=== PATIENT | female | born 1975 | race Caucasian/White ===

== ENCOUNTER 2016-05-05 15:24 | Emergency (ER) | payer MEDICAID ==
[2016-05-05 16:09] VITALS: BP 147/74
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
== END 2016-05-05 16:50 | disposition left against medical advice (07) ==
LOC: ER 15:24
DX: S00.12XA Contusion of left eyelid and periocular area, initial encounter (principal); S00.83XA Contusion of other part of head, initial encounter; M79.645 Pain in left finger(s); Y04.2XXA Assault by strike against or bumped into by another person, initial encounter; Y92.009 Unspecified place in unspecified non-institutional (private) residence as the place of occurrence of the external cause; F41.9 Anxiety disorder, unspecified; F90.9 Attention-deficit hyperactivity disorder, unspecified type; F32.9 Major depressive disorder, single episode, unspecified; Z79.899 Other long term (current) drug therapy; Z53.20 Procedure and treatment not carried out because of patient's decision for unspecified reasons
CPT/HCPCS: 99281

== ENCOUNTER 2016-08-05 10:36 | Emergency (ER) | payer MEDICAID ==
[2016-08-05 10:40] VITALS: BP 157/89
== END 2016-08-05 12:14 | disposition left against medical advice (07) ==
LOC: ER 10:36
DX: Z53.21 Procedure and treatment not carried out due to patient leaving prior to being seen by health care provider (principal)

== ENCOUNTER 2017-12-22 08:32 | Emergency (ER) | payer SELFPAY ==
--- NOTE | 2017-12-22 09:14 | ER Document Report ---
HPI - HPI Patient complains to provider of: sick Onset: Other - 2 days Pain Level: 4 Context: 42-year-old female complaining of toothache and then sores on the outside of her mouth thinking her tooth abscess was coming to the outside of her chin. This morning she developed a really bad sore throat with general body aches. No vomiting or diarrhea. No rash. Associated Symptoms: Other - See above Exacerbated by: Other - Swallowing Relieved by: Denies Similar symptoms previously: No Recently seen / treated by doctor: No - ROS ROS below otherwise negative: Yes Systems Reviewed and Negative: Yes All other systems reviewed and negative - REPRODUCTIVE Reproductive: DENIES: : Past Medical History - General Information source: Patient - Social History Smoking Status: Current Every Day Smoker Lives with: Family Family History: Reviewed & Not Pertinent Renal/ Medical History: Denies: Hx Peritoneal Dialysis Psychiatric Medical History: Reports: Hx Anxiety, Hx Attention Deficit Hyperactivity Disorder, Hx Depression Past Surgical History: Reports: Hx Cholecystectomy, Hx Gynecologic Surgery - D&C - Immunizations Immunizations up to date: Yes Hx Diphtheria, Pertussis, Tetanus Vaccination: Yes Vertical Provider Document - CONSTITUTIONAL Agree With Documented VS: Yes Exam Limitations: No Limitations - INFECTION CONTROL TRAVEL OUTSIDE OF THE [place] IN LAST 30 DAYS: No - HEENT HEENT: Pharyngeal Erythema. negative: Conjuctival Injection, Tympanic Membrane Bulging Notes: Bilateral exudative tonsils, uvula midline, no abscess, gingivitis and some dental decay throughout her mouth there is no abscess palpated, left chin with impetigo - NECK Neck: Supple, Lymphadenopathy-Left - Anterior, Lymphadenopathy-Right - Anterior - RESPIRATORY Respiratory: Breath Sounds Normal, No Respiratory Distress - CARDIOVASCULAR Cardiovascular: Regular Rate, Regular Rhythm - GI/ABDOMEN Gastrointestinal: Abdomen Soft, Abdomen Non-Tender, No Organomegaly - MUSCULOSKELETAL/EXTREMETIES Musculoskeletal/Extremeties: MAEW - NEURO Level of Consciousness: Awake - DERM Integumentary: Rash - see above Course - Re-evaluation Re-evalutation: 12/22/17 10:23 Eating Fritos and drinking feels a lot better IV fluid is infusing. - Vital Signs Vital signs: Temp Pulse Resp BP Pulse Ox 98.4 F 114 H 20 143/93 H 98 12/22/17 08:48 12/22/17 08:48 12/22/17 08:48 12/22/17 08:48 12/22/17 08:48 Discharge - Discharge Clinical Impression: Impetigo, Exudative tonsillitis, Dental decay Condition: Good Disposition: HOME, SELF-CARE Instructions: Acetaminophen, Bactroban Ointment ([facility]), Clindamycin ([facility]), Corticosteroid Medication ([facility]), Ibuprofen (General) ([facility]), Tonsillitis ([facility]), Toothache ([facility]) Additional Instructions: Bactroban small amount 3 times a day to the left chin lesions Antibiotics until they are completed Return to the emergency room if symptoms worsen such as fever, chills, trouble swallowing, swelling to the throat, trouble breathing If you are still sick in 1 week get a mononucleosis test Prescriptions: Ibuprofen [Motrin 600 mg Tablet] 600 mg PO Q8HP PRN #30 tablet PRN Reason: Clindamycin HCl [Cleocin 150 mg Capsule] 300 mg PO TID #60 capsule Forms: Return to Work
[2017-12-22] MEDS ORDERED: KETOROLAC TROMETHAMINE INJ/PF 30 MG/1 ML SDV IV ONE (09:20)
[2017-12-22] MEDS ORDERED: DEXAMETHASONE SOD PHOS INJ 10 MG/1 ML VIAL IV ONE (09:20)
[2017-12-22] MEDS ORDERED: CLINDAMYCIN 600 MG/D5W RTU 600 MG/50 ML RTUPB IV ONE (09:20)
[2017-12-22] MEDS ORDERED: RINGERS SOLUTION,LACTATED 1,000 ML IV ONE (09:21)
[2017-12-22] MEDS ORDERED: MUPIROCIN 2% OINTMENT 22 GM TP ONE (09:21)
[2017-12-22 11:02] VITALS: BP 166/81
== END 2017-12-22 11:03 | disposition home or self-care (01) ==
LOC: ER 08:32
DX: K02.9 Dental caries, unspecified (principal); J03.90 Acute tonsillitis, unspecified; L01.00 Impetigo, unspecified; F17.200 Nicotine dependence, unspecified, uncomplicated
CPT/HCPCS: 99282; 96375; 96365; J1885; J3490; J1100

== ENCOUNTER 2018-07-29 15:32 | Emergency (ER) | payer SELFPAY ==
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
[2018-07-29 17:41] VITALS: BP 164/101
== END 2018-07-29 20:52 | disposition home or self-care (01) ==
LOC: ER 15:32
DX: K04.7 Periapical abscess without sinus (principal); K05.10 Chronic gingivitis, plaque induced; K08.89 Other specified disorders of teeth and supporting structures; R11.0 Nausea; Z88.5 Allergy status to narcotic agent
CPT/HCPCS: 99282

== ENCOUNTER 2018-12-16 14:37 | Inpatient (IN) | payer SELFPAY ==
--- NOTE | 2018-12-16 14:55 | ER Document Report ---
ED Medical Screen (RME) - General Stated Complaint: HEADACHE Time Seen by Provider: 12/16/18 14:48 Mode of Arrival: Ambulatory Information source: Patient Notes: This 43-year-old female presents to the emergency department with complaints of bloody cough that started approximately 5 hours ago. Patient is very anxious. Reports nausea denies vomiting. Reports she feels very warm. Patient has history of mental health issues. Denies asthma cardiac disease. Patient is extremely anxious. Blood noted on her arms she reports that switch she coughed up. VS completed, low o2sat, pt has hx of pneumonia. I have greeted and performed a rapid initial assessment of this patient. A comprehensive ED assessment and evaluation of the patient, analysis of test results and completion of the medical decision making process will be conducted by additional ED providers. Dictation of this chart was performed using voice recognition software; therefore, there may be some unintended grammatical errors. TRAVEL OUTSIDE OF THE [place] IN LAST 30 DAYS: No - Related Data Allergies/Adverse Reactions: codeine [Codeine] Allergy (Verified 07/29/18 15:33) Past Medical History Renal/ Medical History: Denies: Hx Peritoneal Dialysis Psychiatric Medical History: Reports: Hx Anxiety, Hx Attention Deficit Hyperactivity Disorder, Hx Depression Past Surgical History: Reports: Hx Cholecystectomy, Hx Gynecologic Surgery - D&C - Immunizations Immunizations up to date: Yes Hx Diphtheria, Pertussis, Tetanus Vaccination: Yes Course - Laboratory Result Diagrams: 12/16/18 15:27 12/16/18 15:27
[2018-12-16] MEDS ORDERED: ACETAMINOPHEN 325 MG TABLET ONE (15:22)
[2018-12-16] MEDS ORDERED: ACETAMINOPHEN 325 MG TABLET PO ONE (15:23)
[2018-12-16 15:44] LABS: VENOUS BLOOD HCO3 25.2 mmol/L (20-32); VENOUS BLOOD PCO2 47.3 mmHg (35-63); VENOUS BLOOD PH 7.35 (7.30-7.42)
[2018-12-16 15:45] LABS: ABSOLUTE BASOPHILS # (AUTO) 0.1 10^3/uL (0.0-0.2); ABSOLUTE EOSINOPHILS # (AUTO) 0.1 10^3/uL (0.0-0.6); ABSOLUTE LYMPHOCYTES (AUTO) 0.9 10^3/uL (0.5-4.7); ABSOLUTE MONOCYTES (AUTO) 0.4 10^3/uL (0.1-1.4); ABSOLUTE NEUT (AUTO) 12.9 10^3/uL (1.7-8.2); BASOPHILS % (AUTO) 0.5 % (0-2); EOSINOPHILS % (AUTO) 0.4 % (0-6); HEMATOCRIT 33.4 % (36.0-47.0); HEMOGLOBIN 11.1 g/dL (12.0-15.5); LYMPHOCYTES % (AUTO) 6.1 % (13-45); MEAN CORPUSCULAR HEMOGLOBIN 27.1 pg (27.0-33.4); MEAN CORPUSCULAR HGB CONC 33.1 g/dL (32.0-36.0); MEAN CORPUSCULAR VOLUME 82 fl (80-97); PLATELET COUNT 232 10^3/uL (150-450); RED BLOOD COUNT 4.08 10^6/uL (3.72-5.28); RED CELL DISTRIBUTION WIDTH 14.4 % (11.5-14.0); TOTAL CELLS COUNTED % (AUTO) 100 %; WHITE BLOOD COUNT 14.4 10^3/uL (4.0-10.5)
[2018-12-16] MEDS ORDERED: CEFTRIAXONE 2 GM/D5W RTU 2 GM/50 ML RTUPB IV ONE (15:55)
[2018-12-16] MEDS ORDERED: AZITHROMYCIN INJ 500 MG VIAL IV ONE (15:55)
[2018-12-16 16:03] LABS: ALBUMIN 3.1 g/dL (3.5-5.0); ALKALINE PHOSPHATASE 63 U/L (38-126); ANION GAP 7 (5-19); ASPARTATE AMINO TRANSFERASE 21 U/L (14-36); BILIRUBIN,DIRECT 0.2 mg/dL (0.0-0.4); BILIRUBIN,TOTAL 0.6 mg/dL (0.2-1.3); BLOOD UREA NITROGEN 15 mg/dL (7-20); CALCIUM 8.7 mg/dL (8.4-10.2); CARBON DIOXIDE 25 mmol/L (22-30); CHLORIDE 105 mmol/L (98-107); GLUCOSE 166 mg/dL (75-110); POTASSIUM 4.1 mmol/L (3.6-5.0); TOTAL PROTEIN 6.3 g/dL (6.3-8.2)
[2018-12-16] MEDS ORDERED: LORAZEPAM INJ 2 MG/1 ML VIAL ONE (16:12)
[2018-12-16] MEDS ORDERED: LORAZEPAM INJ 2 MG/1 ML VIAL IV ONE (16:12)
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
--- NOTE | 2018-12-16 17:05 | RADIOLOGY REPORT (SQ) ---
EXAM DESCRIPTION: CHEST SINGLE VIEW COMPLETED DATE/TIME: 12/16/2018 4:30 pm REASON FOR STUDY: shortness of breath COMPARISON: None. TECHNIQUE: Single frontal radiographic view of the chest acquired. NUMBER OF VIEWS: One view. LIMITATIONS: None. FINDINGS: LUNGS AND PLEURA: No pneumothorax. Patchy airspace -ground-glass opacities are present th roughout the left lung. No significant pleural effusion. MEDIASTINUM AND HILAR STRUCTURES: Normal. HEART AND VASCULAR STRUCTURES: Normal. BONES: No acute findings. HARDWARE: None in the chest. OTHER: No other significant finding. IMPRESSION: Patchy airspace -ground-glass opacities are present throughout the left lung. No signi ficant pleural effusion. TECHNICAL DOCUMENTATION: JOB ID: [id number] [id number] 2010 [employer]- All Rights Reserved Reading location - IP/workstation name: [email or web address]
--- NOTE | 2018-12-16 18:47 | RADIOLOGY REPORT (SQ) ---
EXAM DESCRIPTION: CTA CHEST COMPLETED DATE/TIME: 12/16/2018 6:35 pm REASON FOR STUDY: Hemoptysish COMPARISON: Earlier radiograph TECHNIQUE: CT scan of the chest performed using helical scanning technique with dynamic intravenous contrast injection. Images reviewed with lung, soft tissue and bone windows. Reconstructed coronal and sagittal MPR images reviewed. Additional 3 dimensional post-processing performed to develop Maximal Intensity Projection images (LA P). All images stored on PACS. All CT scanners at this facility use dose modulation, iterative reconstruction, and/or weight based d osing when appropriate to reduce radiation dose to as low as reasonably achievable (ALARA). [facility]: Dose Right [facility]: CareDose [facility]: Dose Right [facility]: Teradose 4D [facility]: iDoneThis CONTRAST TYPE AND DOSE: contrast/concentration: Isovue 350.00 mg/ml; Total Contrast Delivered: 70.0 ml; Total Saline Delivered: 77.0 ml Contrast bolus not optimized for the pulmonary arteries. RENAL FUNCTION: None required. The patient is less than 50 years old. RADIATION DOSE: CT Rad equipment meets quality standard of care and radiation dose reduction techniq ues were employed. CTDIvol: 19.8 - 32.9 mGy. DLP: 1223 mGy-cm. . LIMITATIONS: Breathing motion artifact. FINDINGS: LUNGS AND PLEURA: No pneumothorax. Diffuse patchy consolidation and ground-glass opacity throughout the left lung, small areas are also noted in the right lung. Trace left pleural effusion . AORTA AND GREAT VESSELS: No aneurysm. Contrast bolus not optimized for the aorta. HEART: No pericardial effusion. No significant coronary artery calcifications. PULMONARY ARTERIES: No emboli visualized in the main pulmonary arteries or the segmental branches. HILAR AND MEDIASTINAL STRUCTURES: No identified masses or abnormal nodes. HARDWARE: None in the chest. UPPER ABDOMEN: No significant findings. Limited exam. THYROID AND OTHER SOFT TISSUES: No masses. No adenopathy. BONES: No acute or significant finding. 3D MIPS: Confirm above findings. OTHER: No other significant finding. IMPRESSION: Diffuse patchy consolidation and ground-glass opacity throughout the left lung, small ar eas are also noted in the right lung. Trace left pleural effusion. No emboli visualized in the main pulmonary arteries or the segmental branches. COMMENT: Quality ID # [id number]: Final reports with documentation of one or more dose reduction techniques (e.g., Automated exposure control, adjustment of the mA and/or kV according to patient size, use of iterative reconstruction technique) TECHNICAL DOCUMENTATION: JOB ID: [id number] [place]-[id number] 2010 [employer]- All Rights Reserved Reading location - IP/workstation name: [employer]
[2018-12-16] MEDS ORDERED: GUAIFENESIN SYRP 200 MG/10 ML UDC PO PRN (19:51)
[2018-12-16] MEDS ORDERED: TUBERCULIN,PURIF.PROT.DERIV. 5 TU/0.1 ML TEST 1 ML VIAL ID ONE ×2 (19:51→22:07)
[2018-12-16] MEDS ORDERED: LEVALBUTEROL HCL NEB 0.63 MG/3 ML AMPUL NEB PRN (19:51)
[2018-12-16] MEDS ORDERED: METOPROLOL TARTRATE PF/INJ 5 MG/5 ML SDV IV PRN (20:05)
[2018-12-16] MEDS ORDERED: MAG HYDROX/AL HYDROX/SIMETH SUSP 30 ML UDCUP PO PRN (20:05)
[2018-12-16] MEDS ORDERED: MAGNESIUM HYDROXIDE SUSP 30 ML UDCUP PO PRN (20:05)
[2018-12-16] MEDS ORDERED: NALBUPHINE HCL INJ 10 MG/1 ML AMPULE IV PRN ×3 (20:05→20:48)
[2018-12-16] MEDS ORDERED: DEXTROSE 40% GEL 15 GM TUBE PO PRN ×2 (20:06)
[2018-12-16] MEDS ORDERED: GLUCAGON,HUMAN RECOMB 1 MG INJ IM PRN (20:06)
[2018-12-16] MEDS ORDERED: DEXTROSE 50%-WATER 25 GM/50 ML DISP.SYRIN IV PRN ×2 (20:06)
[2018-12-16] MEDS ORDERED: CHLORPROMAZINE HCL INJ 25 MG/1 ML AMPULE IV PRN (20:07)
[2018-12-16 20:48] LABS: FREE T3 4.02 pg/mL (2.77-5.27); FREE T4 (FREE THYROXINE) 1.25 ng/dL (0.78-2.19)
[2018-12-16] MEDS: DIAZEPAM 5 MG TABLET PO PRN (21:40)
[2018-12-16] MEDS: FAMOTIDINE 20 MG TABLET PO SCH (21:40)
[2018-12-16] MEDS: ACETAMINOPHEN 325 MG TABLET PO PRN (21:41)
--- NOTE | 2018-12-16 22:11 | EKG REPORT ---
SEVERITY:- OTHERWISE NORMAL ECG - SINUS TACHYCARDIA : Confirmed by: Gurdeep Stone MD 16-Dec-2018 22:10:48
[2018-12-16] MEDS: HYDRALAZINE HCL INJ/PF 20 MG/1 ML SDV IV PRN (22:38)
[2018-12-16] MEDS: RINGERS SOLUTION,LACTATED 1,000 ML IV PRN (22:39)
[2018-12-16 23:08] LABS: ARTERIAL BLOOD BASE EXCESS -2.6 mmol/L; ARTERIAL BLOOD FIO2 60%; ARTERIAL BLOOD H2CO3 1.23 mmol/L (1.05-1.35); ARTERIAL BLOOD HCO3 22.6 mmol/L (20-24); ARTERIAL BLOOD O2 SATURATION 91.2 % (94-98); ARTERIAL BLOOD PCO2 40.8 mmHg (35-45); ARTERIAL BLOOD PH 7.36 (7.35-7.45); ARTERIAL BLOOD PO2 62.4 mmHg (80-100); ARTERIAL BLOOD TOTAL CO2 23.9 mmol/L (21-25)
[2018-12-17] MEDS: IPRATROPIUM BROMIDE 0.02% NEB 0.5 MG/2.5 ML AMPUL NEB SCH ×6 (00:06→23:41)
[2018-12-17] MEDS: LEVALBUTEROL HCL NEB 1.25 MG/3 ML AMPUL NEB SCH ×2 (00:06→08:08)
[2018-12-17] MEDS ORDERED: CHLORPROMAZINE HCL INJ 25 MG/1 ML AMPULE ONE (00:20)
[2018-12-17] MEDS: RINGERS SOLUTION,LACTATED 1,000 ML IV PRN (05:35)
--- NOTE | 2018-12-17 05:57 | PDOC H&P ---
History of Present Illness Admission Date/PCP: 12/16/2018 19:05 No local PCP Patient complains of: Hemoptysis History of Present Illness: NEETU GIRARD is a 43 year old female who presented to the emergency room with acute hemoptysis. Patient admits the abrupt onset of a cough with moderate hemoptysis on the morning of admission. Her hemoptysis was accompanied by mild dyspnea at rest worsened by exertion, a persistent productive cough (clear to whitish sputum mixed with blood) and a subjective fever. She denies other associated or accompanying signs and symptoms. She admits a prior similar episode 5 years ago with pneumonia. She has not identified any aggravating or ameliorating factors for her hemoptysis. In the emergency room she was found to be mildly hypoxic and a chest x-ray revealed a left-sided pneumonia confirmed by a CTA of the chest which demonstrated an infiltrate in the left lung without evidence of pulmonary emboli. Patient was subsequently treated with routine community-acquired pneumonia antibiotic therapy and BiPAP was used to correct her hypoxia. She was subsequently admitted to the hospital for further evaluation and treatment. Past Medical History Cardiac Medical History: Denies: Coronary Artery Disease, DVT, Hypertension, Pulmonary Embolism Pulmonary Medical History: Reports: Pneumonia - 5 years ago, Other - Hemoptysis with pneumonia Denies: Asthma, Chronic Obstructive Pulmonary Disease (COPD) EENT Medical History: Denies: Cataracts, Ears - Hearing aids Neurological Medical History: Denies: Hemorrhagic CVA, Ischemic CVA, Seizures Endocrine Medical History: Reports: Gestational Diabetes, Obesity Denies: Diabetes Mellitus Type 1, Diabetes Mellitus Type 2, Hyperthyroidism, Hypothyroidism Renal/ Medical History: Denies: Chronic Kidney Disease, Nephrolithiasis Malignancy Medical History: Reports: None GI Medical History: Denies: Cirrhosis, Crohn's Disease, Gastroesophageal Reflux Disease, Hepatitis, Peptic Ulcer Disease, Ulcerative Colitis Musculoskeltal Medical History: Denies: Arthritis, Gout Skin Medical History: Denies: Eczema, Psoriasis Psychiatric Medical History: Reports: Attention Deficit Hyperactivity Disorder, Depression Denies: Alcohol Dependency, Substance Abuse, Tobacco Dependency Traumatic Medical History: Reports: None Hematology: Denies: Anemia, Bleeding Tendencies Infectious Medical History: Reports: None Past Surgical History Past Surgical History: Reports: Cholecystectomy Social History Information Source: Patient Lives with: Friend Smoking Status: Former Smoker Frequency of Alcohol Use: None Hx Recreational Drug Use: No Drugs: None Hx Prescription Drug Abuse: No - Advance Directive Resuscitation Status: Full Code Surrogate healthcare decision maker:: Ifeoma Sellers Family History Family History: DM. denies: CAD, Hypertension, Malignancy Parental Family History Reviewed: Yes Children Family History Reviewed: No Sibling(s) Family History Reviewed.: Yes Medication/Allergy Home Medications: Alprazolam [Xanax 1 mg Tablet] 0.05 mg PO TID PRN 04/11/11 Albuterol Sulfate [Albuterol Sulfate Hfa] 1 - 2 puff IH Q4 PRN #1 hfa.aer.ad 12/31/13 Labetalol HCl [Normodyne 200 mg Tablet] 300 mg PO Q12 #60 tablet 12/31/13 Levofloxacin [Levaquin 750 mg Tablet] 750 mg PO DAILY #10 tab 12/31/13 Alprazolam [Xanax] 1 mg PO TID 04/01/14 Dextroamphetamine/Amphetamine [Adderall 10 mg Tablet] mg PO 04/01/14 Hydrocodone/Acetaminophen [Vicodin 5-300 mg Tablet] 1 - 2 tab PO ASDIR PRN #15 tab 04/01/14 Ibuprofen 800 mg PO Q8HP PRN #30 tablet 04/01/14 Penicillin V Potassium [Penicillin Vk 500 mg Tablet] 500 mg PO QID #28 tablet 04/01/14 Hydrocodone/Acetaminophen [[place] 5-325 mg Tablet] 1 tab PO Q6 #10 tablet 07/02/14 Ibuprofen [Motrin 800 mg Tablet] 800 mg PO Q8H PRN #30 tab 07/02/14 Amoxicillin 875 mg PO BID #20 tablet 02/04/15 Hydrocodone/Acetaminophen [[place] 5-325 Tablet] 1 each PO Q6 #15 tablet 02/04/15 Pseudoephedrine HCl [Sudafed 12-Hour] 120 mg PO BID #0 tablet.sa 02/04/15 Clindamycin HCl 300 mg PO QID #20 capsule 05/31/15 Oxycodone HCl/Acetaminophen [Percocet 5-325 mg Tablet] 1 - 2 tab PO Q4H PRN #15 tablet 05/31/15 Naproxen Sodium [Naprelan] 500 mg PO BID PRN #60 tablet.sa 09/20/15 Clindamycin HCl 300 mg PO Q6H #28 capsule 01/08/16 Hydrocodone/Acetaminophen [[place] 5-325 mg Tablet] 1 tab PO Q6H PRN #5 tablet 01/08/16 Phenol/Sodium Phenolate [Chloraseptic Sore Throat [place] 177 ml] 2 sprays MM Q4HP PRN #1 bottle 01/08/16 Prednisone [Deltasone 10 mg Tablet] 10 mg PO ASDIR PRN #21 tablet 01/08/16 Clindamycin HCl [Cleocin 150 mg Capsule] 300 mg PO TID #60 capsule 12/22/17 Ibuprofen [Motrin 600 mg Tablet] 600 mg PO Q8HP PRN #30 tablet 12/22/17 Amoxicillin 1 tab PO TID #21 tab 07/29/18 Tramadol HCl/Acetaminophen [Ultracet 37.5 mg/325 mg Tablet] 1 each PO Q6HP PRN #12 tablet 07/29/18 Allergies/Adverse Reactions: codeine [Codeine] Allergy (Verified 07/29/18 15:33) Review of Systems Constitutional: PRESENT: as per HPI, fever(s) - Subjective. ABSENT: chills, headache(s) Eyes: ABSENT: visual disturbances, other - Eye pain Ears: ABSENT: hearing changes, other - Ear pain Nose, Mouth, and Throat: ABSENT: mouth pain, sore throat Cardiovascular: PRESENT: as per HPI, dyspnea on exertion. ABSENT: chest pain, edema, orthropnea, palpitations Respiratory: PRESENT: as per HPI, cough, dyspnea, hemoptysis, sputum Gastrointestinal: ABSENT: abdominal pain, constipation, diarrhea, nausea, vomiting Genitourinary: ABSENT: dysuria, hematuria Musculoskeletal: ABSENT: back pain, joint swelling, muscle weakness Integumentary: ABSENT: pruritus, rash Neurological: ABSENT: confusion, convulsions, focal weakness, memory loss, syncope Psychiatric: ABSENT: anxiety, depression Endocrine: ABSENT: cold intolerance, heat intolerance Hematologic/Lymphatic: ABSENT: easy bleeding, easy bruising Allergic/Immunologic: ABSENT: seasonal rhinorrhea Physical Exam Vital Signs: Temp Pulse Resp BP Pulse Ox 97.8 F 22 H 166/77 H 96 12/16/18 17:07 12/16/18 17:40 12/16/18 15:31 12/16/18 17:40 General appearance: PRESENT: no acute distress, cooperative, morbidly obese, other - On BiPAP Head exam: PRESENT: atraumatic, normocephalic Eye exam: PRESENT: conjunctiva pink. ABSENT: conjunctival injection, scleral icterus Ear exam: PRESENT: normal external ear exam. ABSENT: bleeding, drainage Mouth exam: PRESENT: dry mucosa, neck supple Neck exam: ABSENT: JVD, thyromegaly, tracheal deviation Respiratory exam: PRESENT: rales - Coarse rales noted in the left lower lung tolbert, symmetrical, other - On BiPAP Cardiovascular exam: PRESENT: RRR, tachycardia. ABSENT: clicks, gallop, rubs Pulses: PRESENT: normal radial pulses, normal dorsalis pedis pul Vascular exam: PRESENT: normal capillary refill. ABSENT: pallor GI/Abdominal exam: PRESENT: normal bowel sounds, soft Rectal exam: PRESENT: deferred Extremities exam: ABSENT: joint swelling, pedal edema Musculoskeletal exam: PRESENT: full ROM, normal inspection Neurological exam: PRESENT: alert, oriented to person, oriented to place, o riented to time, oriented to situation, CN II-XII grossly intact. ABSENT: motor sensory deficit Psychiatric exam: PRESENT: appropriate affect, normal mood Skin exam: PRESENT: dry, intact, warm. ABSENT: jaundice, rash, urticaria Results Laboratory Results: 12/16/18 15:27 12/16/18 15:27 12/16/18 12/16/18 12/16/18 15:27 15:27 15:27 WBC 14.4 H RBC 4.08 Hgb 11.1 L Hct 33.4 L MCV 82 MCH 27.1 MCHC 33.1 RDW 14.4 H Plt Count 232 Seg Neutrophils % 90.0 H VBG pH VBG pCO2 VBG HCO3 VBG Base Excess Sodium 136.9 L Potassium 4.1 Chloride 105 Carbon Dioxide 25 Anion Gap 7 BUN 15 Creatinine 0.82 Est GFR ( Amer) > 60 Glucose 166 H Lactic Acid 1.4 Calcium 8.7 Total Bilirubin 0.6 AST 21 Alkaline Phosphatase 63 Total Protein 6.3 Albumin 3.1 L 12/16/18 15:27 WBC RBC Hgb Hct MCV MCH MCHC RDW Plt Count Seg Neutrophils % VBG pH 7.35 VBG pCO2 47.3 VBG HCO3 25.2 VBG Base Excess -1.0 Sodium Potassium Chloride Carbon Dioxide Anion Gap BUN Creatinine Est GFR ( Amer) Glucose Lactic Acid Calcium Total Bilirubin AST Alkaline Phosphatase Total Protein Albumin 12/16/18 15:27 Troponin I < 0.012 Impressions: Chest X-Ray 12/16/18 15:30 IMPRESSION: Patchy airspace -ground-glass opacities are present throughout the left lung. No significant pleural effusion. Chest/Abdomen CTA 12/16/18 17:01 IMPRESSION: Diffuse patchy consolidation and ground-glass opacity throughout the left lung, small areas are also noted in the right lung. Trace left pleural effusion. No emboli visualized in the main pulmonary arteries or the segmental branches. Assessment and Plan - Diagnosis (1) PNA (pneumonia) Qualifiers: Aspiration pneumonia type: unspecified Laterality: left Lung location: unspecified part of lung Is this a current diagnosis for this admission?: Yes Plan: Patient's community-acquired pneumonia will be treated with Rocephin 1 g IV every 24 hours and azithromycin 500 mg IV every 24 hours. Daily CBCs and metabolic profiles will be obtained. O2 sats will be monitored closely and supplemental oxygen will be provided to maintain an O2 sat greater than 93%. Patient will receive IV fluids and routine supportive cares. Nubain 5 to 10 mg IV every 3 hours on a as needed basis will be available for any moderate to severe pain associated with her pneumonia. Patient will also receive an aggressive pulmonary toilet utilizing nebulized Xopenex, Atrovent and Mucomyst. (2) Acute respiratory failure with hypoxia Is this a current diagnosis for this admission?: Yes Plan: Patient will be treated with supplemental oxygen via nasal cannula or noninvasive airway pressure support devices such as CPAP or BiPAP in order to maintain an O2 sat greater than 93%. Patient's O2 sat be monitored closely throughout her hospital stay. (3) Hemoptysis Is this a current diagnosis for this admission?: Yes Plan: Patient's hemoptysis will be evaluated with daily CBCs and ongoing clinical assessment. Pulmonary consultation will be obtained if hemoptysis is persistent. (4) Hyperglycemia Is this a current diagnosis for this admission?: Yes Plan: Hemoglobin A1c will be obtained. Patient will be treated with a diabetic diet initially and will have before meals and at bedtime Accu-Cheks performed with sliding scale insulin for hyperglycemia and a hypoglycemic protocol in place. (5) Anxiety Is this a current diagnosis for this admission?: Yes Plan: Patient's anxiety will be treated with Valium 5 mg p.o. every 4 hours as needed anxiety or agitation. (6) Morbid obesity Is this a current diagnosis for this admission?: Yes Plan: Patient's morbid obesity will be addressed with a diabetic diet with an accompanying cardiac diet and the electronic drafter consultation will be obtained. (7) Elevated blood pressure reading without diagnosis of hypertension Is this a current diagnosis for this admission?: Yes Plan: Patient's blood pressure will be followed closely throughout her hospital stay. Hydralazine 20 mg IV every 4 hours and or metoprolol 5 mg IV every 4 hours will be used to control blood pressures (systolic blood pressure greater than 160 and/or diastolic blood pressure greater than 100. - Time Time Spent with patient: 25-34 minutes Medications reviewed and adjusted accordingly: Yes Anticipated discharge: Home - Inpatient Certification Based on my medical assessment, after consideration of the patient's comorbidities, presenting symptoms, or acuity I expect that the services needed warrant INPATIENT care.: Yes I certify that my determination is in accordance with my understanding of Medicare's requirements for reasonable and necessary INPATIENT services [42 CFR 412.3e].: Yes Medical Necessity: Significant Comorbidiites Make Outpatient Treatment Too Risky, Need Close Monitoring Due to Risk of Patient Decompensation, Need For IV Fluids, Need For Continuous Telemetry Monitoring, Need for Nebulizer Therapy and Monitoring of Response, Need for IV Antibiotics, Risk of Complication if Not Cared For in Hospital
[2018-12-17 06:35] LABS: HEMATOCRIT 33.4 % (36.0-47.0); HEMOGLOBIN 11.1 g/dL (12.0-15.5); MEAN CORPUSCULAR HEMOGLOBIN 27.2 pg (27.0-33.4); MEAN CORPUSCULAR HGB CONC 33.3 g/dL (32.0-36.0); MEAN CORPUSCULAR VOLUME 82 fl (80-97); PLATELET COUNT 217 10^3/uL (150-450); RED BLOOD COUNT 4.09 10^6/uL (3.72-5.28); RED CELL DISTRIBUTION WIDTH 14.5 % (11.5-14.0); WHITE BLOOD COUNT 20.7 10^3/uL (4.0-10.5)
[2018-12-17 06:43] LABS: ANION GAP 8 (5-19); BLOOD UREA NITROGEN 11 mg/dL (7-20); CALCIUM 8.2 mg/dL (8.4-10.2); CARBON DIOXIDE 25 mmol/L (22-30); CHLORIDE 104 mmol/L (98-107); CHOLESTEROL 198.61 mg/dL (0-200); GLUCOSE 133 mg/dL (75-110); POTASSIUM 3.6 mmol/L (3.6-5.0); TRIGLYCERIDES 52 mg/dL (<150)
[2018-12-17 06:54] LABS: DIRECT LDL 147 mg/dL (<100)
[2018-12-17] MEDS: ACETYLCYSTEINE 20% SOLN 800 MG/4 ML VIAL.NEB NEB SCH ×2 (08:09→20:01)
[2018-12-17] MEDS: DOCUSATE SODIUM 100 MG CAPSULE PO SCH ×2 (10:22→17:37)
[2018-12-17 10:28] LABS: ARTERIAL BLOOD BASE EXCESS 1.9 mmol/L; ARTERIAL BLOOD FIO2 8L; ARTERIAL BLOOD H2CO3 1.01 mmol/L (1.05-1.35); ARTERIAL BLOOD HCO3 24.9 mmol/L (20-24); ARTERIAL BLOOD O2 SATURATION 91.9 % (94-98); ARTERIAL BLOOD PCO2 33.7 mmHg (35-45); ARTERIAL BLOOD PH 7.49 (7.35-7.45); ARTERIAL BLOOD PO2 56.9 mmHg (80-100)
[2018-12-17] MEDS: FAMOTIDINE 20 MG TABLET PO SCH ×2 (10:29→21:55)
[2018-12-17] MEDS: DIAZEPAM 5 MG TABLET PO PRN ×2 (10:29→19:59)
[2018-12-17] MEDS ORDERED: RINGERS SOLUTION,LACTATED 1,000 ML IV PRN (11:06)
--- NOTE | 2018-12-17 11:15 | PDOC PROGRESS REPORT ---
Subjective Progress Note for:: 12/17/18 Subjective:: 12/16: NEETU GIRARD is a 43 year old female who presented to the emergency room with acute hemoptysis. Patient admits the abrupt onset of a cough with moderate hemoptysis on the morning of admission. Her hemoptysis was accompanied by mild dyspnea at rest worsened by exertion, a persistent productive cough (clear to whitish sputum mixed with blood) and a subjective fever. She denies other associated or accompanying signs and symptoms. She admits a prior similar episode 5 years ago with pneumonia. She has not identified any aggravating or ameliorating factors for her hemoptysis. In the emergency room she was found to be mildly hypoxic and a chest x-ray revealed a left-sided pneumonia confirmed by a CTA of the chest which demonstrated an infiltrate in the left lung without evidence of pulmonary emboli. Patient was subsequently treated with routine c ommunity-acquired pneumonia antibiotic therapy and BiPAP was used to correct her hypoxia. She was subsequently admitted to the hospital for further evaluation and treatment. 12/17: Patient was seen and examined. She is on BiPAP. She is still tachypneic. She could speak in full sentences however. She is still distress. CT scan of the chest reviewed. Her ABG reviewed. Labs also reviewed. Reason For Visit: HEMOPTYSIS,PNEUMONIA Physical Exam Vital Signs: Temp Pulse Resp BP Pulse Ox 100.5 F H 101 H 36 H 139/76 H 94 12/17/18 04:00 12/17/18 08:09 12/17/18 08:09 12/17/18 04:00 12/17/18 09:20 Intake & Output 12/16/18 12/17/18 12/18/18 06:59 06:59 06:59 Intake Total 1100 Output Total 0 Balance 1100 Weight 288 lb 2.307 oz Exam: Patient is mild to moderate acute distress Alert oriented to time place person No anxiety or depression Head: atraumatic normocephalic Pupils: are equal reactive Neck: is supple and trachea is central no lymphadenopathy No pharyngeal erythema or exudates Heart: Regular tachycardia Lungs: Bilateral rhonchi, tachypnea Abdomen: nontender nondistended Neurological exam: unremarkable Musculoskeletal: No joint swelling or effusion chronic lower back pain and tenderness No suicidal or homicidal ideation Results Laboratory Results: 12/17/18 05:40 12/17/18 05:40 12/16/18 12/16/18 12/16/18 15:27 15:27 15:27 WBC 14.4 H RBC 4.08 Hgb 11.1 L Hct 33.4 L MCV 82 MCH 27.1 MCHC 33.1 RDW 14.4 H Plt Count 232 Seg Neutrophils % 90.0 H Carbonic Acid HCO3/H2CO3 Ratio ABG pH ABG pCO2 ABG pO2 ABG HCO3 ABG O2 Saturation ABG Base Excess VBG pH VBG pCO2 VBG HCO3 VBG Base Excess FiO2 Sodium 136.9 L Potassium 4.1 Chloride 105 Carbon Dioxide 25 Anion Gap 7 BUN 15 Creatinine 0.82 Est GFR ( Amer) > 60 Glucose 166 H Lactic Acid 1.4 Calcium 8.7 Total Bilirubin 0.6 AST 21 Alkaline Phosphatase 63 Total Protein 6.3 Albumin 3.1 L Triglycerides Cholesterol LDL Cholesterol Direct VLDL Cholesterol HDL Cholesterol TSH Free T4 Free T3 pg/mL Blood Type Antibody Screen 12/16/18 12/16/18 12/16/18 15:27 15:27 20:20 WBC RBC Hgb Hct MCV MCH MCHC RDW Plt Count Seg Neutrophils % Carbonic Acid HCO3/H2CO3 Ratio ABG pH ABG pCO2 ABG pO2 ABG HCO3 ABG O2 Saturation ABG Base Excess VBG pH 7.35 VBG pCO2 47.3 VBG HCO3 25.2 VBG Base Excess -1.0 FiO2 Sodium Potassium Chloride Carbon Dioxide Anion Gap BUN Creatinine Est GFR ( Amer) Glucose Lactic Acid Calcium Total Bilirubin AST Alkaline Phosphatase Total Protein Albumin Triglycerides Cholesterol LDL Cholesterol Direct VLDL Cholesterol HDL Cholesterol TSH Free T4 1.25 Free T3 pg/mL 4.02 Blood Type O POSITIVE Antibody Screen NEGATIVE 12/16/18 12/16/18 12/17/18 21:10 22:05 00:44 WBC RBC Hgb Hct MCV MCH MCHC RDW Plt Count Seg Neutrophils % Carbonic Acid 1.23 HCO3/H2CO3 Ratio 18:1 ABG pH 7.36 ABG pCO2 40.8 ABG pO2 62.4 L ABG HCO3 22.6 ABG O2 Saturation 91.2 L ABG Base Excess -2.6 VBG pH VBG pCO2 VBG HCO3 VBG Base Excess FiO2 60% Sodium Potassium Chloride Carbon Dioxide Anion Gap BUN Creatinine Est GFR ( Amer) Glucose Lactic Acid 1.1 1.3 Calcium Total Bilirubin AST Alkaline Phosphatase Total Protein Albumin Triglycerides Cholesterol LDL Cholesterol Direct VLDL Cholesterol HDL Cholesterol TSH Free T4 Free T3 pg/mL Blood Type Antibody Screen 12/17/18 12/17/18 12/17/18 05:40 05:40 05:40 WBC 20.7 H RBC 4.09 Hgb 11.1 L Hct 33.4 L MCV 82 MCH 27.2 MCHC 33.3 RDW 14.5 H Plt Count 217 Seg Neutrophils % Carbonic Acid HCO3/H2CO3 Ratio ABG pH ABG pCO2 ABG pO2 ABG HCO3 ABG O2 Saturation ABG Base Excess VBG pH VBG pCO2 VBG HCO3 VBG Base Excess FiO2 Sodium 137.0 Potassium 3.6 Chloride 104 Carbon Dioxide 25 Anion Gap 8 BUN 11 Creatinine 0.64 Est GFR ( Amer) > 60 Glucose 133 H Lactic Acid 1.0 Calcium 8.2 L Total Bilirubin AST Alkaline Phosphatase Total Protein Albumin Triglycerides 52 Cholesterol 198.61 LDL Cholesterol Direct 147 H VLDL Cholesterol 10.0 HDL Cholesterol 46 TSH Free T4 Free T3 pg/mL Blood Type Antibody Screen 12/17/18 12/17/18 05:40 10:20 WBC RBC Hgb Hct MCV MCH MCHC RDW Plt Count Seg Neutrophils % Carbonic Acid 1.01 L HCO3/H2CO3 Ratio 24:1 ABG pH 7.49 H ABG pCO2 33.7 L ABG pO2 56.9 L ABG HCO3 24.9 H ABG O2 Saturation 91.9 L ABG Base Excess 1.9 VBG pH VBG pCO2 VBG HCO3 VBG Base Excess FiO2 8L Sodium Potassium Chloride Carbon Dioxide Anion Gap BUN Creatinine Est GFR ( Amer) Glucose Lactic Acid Calcium Total Bilirubin AST Alkaline Phosphatase Total Protein Albumin Triglycerides Cholesterol LDL Cholesterol Direct VLDL Cholesterol HDL Cholesterol TSH 0.52 Free T4 Free T3 pg/mL Blood Type Antibody Screen 12/16/18 15:27 Troponin I < 0.012 Impressions: Chest X-Ray 12/16/18 15:30 IMPRESSION: Patchy airspace -ground-glass opacities are present throughout the left lung. No significant pleural effusion. Chest/Abdomen CTA 12/16/18 17:01 IMPRESSION: Diffuse patchy consolidation and ground-glass opacity throughout the left lung, small areas are also noted in the right lung. Trace left pleural effusion. No emboli visualized in the main pulmonary arteries or the segmental branches. Assessment and Plan - Plan Summary Plan Summary: (1) PNA (pneumonia) Severe bilateral pneumonia. Will start IV vancomycin, IV Levaquin, IV cefepime. Monitor blood culture and sputum culture. Repeat chest x-ray in the morning. Aggressive pulmonary toilet. Treat hypoxia as below. (2) Acute respiratory failure with hypoxia Patient will need high flow nasal cannula oxygen. Discussed with respiratory therapy. (3) Hemoptysis Most likely due to pneumonia. Monitor hemoglobin hematocrit. Currently she is improving. (4) Hyperglycemia Hemoglobin A1c is 6.3. Continue with a diabetic diet initially and will have before meals and at bedtime Accu-Cheks performed with sliding scale insulin for hyperglycemia and a hypoglycemic protocol in place. (5) Anxiety She was started on admission on Valium 5 mg p.o. every 4 hours as needed anxiety or agitation. (6) Morbid obesity On admission, home care associate evaluation requested. (7) Elevated blood pressure reading without diagnosis of hypertension Patient's blood pressure will be followed closely throughout her hospital stay. Continue hydralazine 20 mg IV every 4 hours and or metoprolol 5 mg IV every 4 hours will be used to control blood pressures (systolic blood pressure greater than 160 and/or diastolic blood pressure greater than 100.
[2018-12-17] MEDS ORDERED: AZITHROMYCIN 500 MG in DEXTROSE 5%-WATER 250 ML IV SCH (12:00)
[2018-12-17] MEDS ORDERED: CEFTRIAXONE 1 GM/D5W RTU 1 GM/50 ML RTUPB IV SCH (12:00)
[2018-12-17] MEDS: LEVOFLOXACIN 750 MG/D5W RTU 750 MG/150 ML RTUPB IV SCH (12:15)
[2018-12-17] MEDS: CEFEPIME 2 GM/D5W RTU 2 GM/50 ML RTUPB IV SCH (14:06)
[2018-12-17] MEDS: IBUPROFEN 800 MG TABLET PO PRN ×2 (15:36→22:07)
[2018-12-17] MEDS: METHYLPREDNISOLONE INJ 40 MG/1 ML SDV IV SCH ×2 (15:37→21:55)
[2018-12-17] MEDS: VANCOMYCIN HCL 1,250 MG in DEXTROSE 5%-WATER 250 ML IV SCH ×2 (15:37→21:55)
[2018-12-17] MEDS: HYDRALAZINE HCL INJ/PF 20 MG/1 ML SDV IV PRN (19:53)
[2018-12-17] MEDS ORDERED: VANCOMYCIN HCL INJ 1000 MG VIAL IV SCH (22:00)
[2018-12-17] MEDS: ALBUTEROL SULFATE 0.083% NEB 2.5 MG/3 ML AMPUL NEB PRN (23:40)
[2018-12-18] MEDS: CEFEPIME 2 GM/D5W RTU 2 GM/50 ML RTUPB IV SCH ×3 (00:05→21:51)
[2018-12-18] MEDS: DIAZEPAM 5 MG TABLET PO PRN ×3 (01:02→12:52)
[2018-12-18] MEDS: VANCOMYCIN HCL 1,250 MG in DEXTROSE 5%-WATER 250 ML IV SCH ×4 (03:50→20:14)
[2018-12-18] MEDS: IPRATROPIUM BROMIDE 0.02% NEB 0.5 MG/2.5 ML AMPUL NEB SCH ×5 (04:28→20:35)
[2018-12-18 05:25] LABS: HEMATOCRIT 32.1 % (36.0-47.0); HEMOGLOBIN 10.8 g/dL (12.0-15.5); MEAN CORPUSCULAR HEMOGLOBIN 27.4 pg (27.0-33.4); MEAN CORPUSCULAR HGB CONC 33.6 g/dL (32.0-36.0); MEAN CORPUSCULAR VOLUME 82 fl (80-97); PLATELET COUNT 215 10^3/uL (150-450); RED BLOOD COUNT 3.94 10^6/uL (3.72-5.28); RED CELL DISTRIBUTION WIDTH 14.3 % (11.5-14.0); WHITE BLOOD COUNT 16.2 10^3/uL (4.0-10.5)
[2018-12-18 05:39] LABS: ANION GAP 10 (5-19); BLOOD UREA NITROGEN 12 mg/dL (7-20); CALCIUM 8.6 mg/dL (8.4-10.2); CARBON DIOXIDE 21 mmol/L (22-30); CHLORIDE 109 mmol/L (98-107); GLUCOSE 184 mg/dL (75-110); POTASSIUM 3.6 mmol/L (3.6-5.0)
[2018-12-18] MEDS: METHYLPREDNISOLONE INJ 40 MG/1 ML SDV IV SCH ×3 (05:48→21:52)
[2018-12-18] MEDS ORDERED: CLONAZEPAM 1 MG TABLET PO PRN (07:55)
[2018-12-18] MEDS ORDERED: DEXTROAMPHETAMINE PO SCH (08:00)
[2018-12-18] MEDS ORDERED: AMPHETAMINE PO SCH (08:00)
[2018-12-18] MEDS ORDERED: [UNRECOGNIZED DRUG - OTHER] PO SCH (08:00)
[2018-12-18 09:02] LABS: APPEARANCE,URINE CLEAR; BILIRUBIN,URINE NEGATIVE (NEGATIVE); COLOR,URINE YELLOW; GLUCOSE, URINE 50 mg/dL (NEGATIVE); KETONES,URINE NEGATIVE (NEGATIVE); LEUKOCYTE ESTERASE,URINE NEGATIVE (NEGATIVE); NITRITE,URINE NEGATIVE (NEGATIVE); PROTEIN,URINE NEGATIVE (NEGATIVE); UROBILINOGEN,URINE NEGATIVE mg/dL (<2.0)
[2018-12-18] MEDS: ACETYLCYSTEINE 20% SOLN 800 MG/4 ML VIAL.NEB NEB SCH ×2 (09:04→20:35)
[2018-12-18] MEDS: ALBUTEROL SULFATE 0.083% NEB 2.5 MG/3 ML AMPUL NEB PRN (09:05)
--- NOTE | 2018-12-18 09:07 | RADIOLOGY REPORT (SQ) ---
EXAM DESCRIPTION: CHEST 2 VIEWS COMPLETED DATE/TIME: 12/18/2018 8:56 am REASON FOR STUDY: pneumonia COMPARISON: 12/16/2018 EXAM PARAMETERS: NUMBER OF VIEWS: two views TECHNIQUE: Digital Frontal and Lateral radiographic views of the chest acquired. RADIATION DOSE: NA LIMITATIONS: none FINDINGS: LUNGS AND PLEURA: Significant interval worsening of heterogeneous airspace disease, more c onspicuous in the left lung. MEDIASTINUM AND HILAR STRUCTURES: No masses or contour abnormalities. HEART AND VASCULAR STRUCTURES: Heart normal size. No evidence for failure. BONES: No acute findings. HARDWARE: None in the chest. OTHER: No other significant finding. IMPRESSION: Significant interval worsening of heterogeneous bilateral airspace disease, more conspic uous in the left lung. Findings are concerning for worsened multifocal infection. TECHNICAL DOCUMENTATION: JOB ID: [id number] [employer]?- All Rights Reserved Reading location - IP/workstation name: [email or web address]
[2018-12-18 09:54] LABS: ARTERIAL BLOOD BASE EXCESS -1.4 mmol/L; ARTERIAL BLOOD H2CO3 0.91 mmol/L (1.05-1.35); ARTERIAL BLOOD HCO3 21.5 mmol/L (20-24); ARTERIAL BLOOD O2 SATURATION 94.9 % (94-98); ARTERIAL BLOOD PCO2 30.2 mmHg (35-45); ARTERIAL BLOOD PH 7.47 (7.35-7.45); ARTERIAL BLOOD PO2 68.4 mmHg (80-100); ARTERIAL BLOOD TOTAL CO2 22.4 mmol/L (21-25)
[2018-12-18] MEDS: DOCUSATE SODIUM 100 MG CAPSULE PO SCH ×2 (10:10→18:31)
[2018-12-18] MEDS: FAMOTIDINE 20 MG TABLET PO SCH ×2 (10:13→21:52)
[2018-12-18] MEDS: IBUPROFEN 800 MG TABLET PO PRN (10:13)
--- NOTE | 2018-12-18 12:03 | PDOC PROGRESS REPORT ---
Subjective Progress Note for:: 12/18/18 Subjective:: 12/16: NEETU GIRARD is a 43 year old female who presented to the emergency room with acute hemoptysis. Patient admits the abrupt onset of a cough with moderate hemoptysis on the morning of admission. Her hemoptysis was accompanied by mild dyspnea at rest worsened by exertion, a persistent productive cough (clear to whitish sputum mixed with blood) and a subjective fever. She denies other associated or accompanying signs and symptoms. She admits a prior similar episode 5 years ago with pneumonia. She has not identified any aggravating or ameliorating factors for her hemoptysis. In the emergency room she was found to be mildly hypoxic and a chest x-ray revealed a left-sided pneumonia confirmed by a CTA of the chest which demonstrated an infiltrate in the left lung without evidence of pulmonary emboli. Patient was subsequently treated with routine c ommunity-acquired pneumonia antibiotic therapy and BiPAP was used to correct her hypoxia. She was subsequently admitted to the hospital for further evaluation and treatment. 12/17: Patient was seen and examined. She is on BiPAP. She is still tachypneic. She could speak in full sentences however. She is still distress. CT scan of the chest reviewed. Her ABG reviewed. Labs also reviewed. 12/18: She was seen and examined today. She is currently on high flow nasal cannula 49% FiO2. She still tachypneic and in distress. ABG today reviewed. Chest x-ray looks a lot worse. She still having hemoptysis. Reason For Visit: HEMOPTYSIS,PNEUMONIA Physical Exam Vital Signs: Temp Pulse Resp BP Pulse Ox 99.2 F 93 20 149/78 H 93 12/18/18 03:32 12/18/18 09:05 12/18/18 09:05 12/18/18 03:32 12/18/18 09:05 Intake & Output 12/17/18 12/18/18 12/19/18 06:59 06:59 06:59 Intake Total 1100 4253 Output Total 0 2000 Balance 1100 2253 Weight 288 lb 2.307 oz 283 lb 4.704 oz Exam: Patient is mild to moderate acute distress Alert oriented to time place person No anxiety or depression Head: atraumatic normocephalic Pupils: are equal reactive Neck: is supple and trachea is central no lymphadenopathy No pharyngeal erythema or exudates Heart: Regular tachycardia Lungs: Bilateral rhonchi, tachypnea Abdomen: nontender nondistended Neurological exam: unremarkable Musculoskeletal: No joint swelling or effusion chronic lower back pain and tenderness No suicidal or homicidal ideation Results Laboratory Results: 12/18/18 04:19 12/18/18 04:19 12/18/18 12/18/18 12/18/18 04:19 04:19 08:42 WBC 16.2 H RBC 3.94 Hgb 10.8 L Hct 32.1 L MCV 82 MCH 27.4 MCHC 33.6 RDW 14.3 H Plt Count 215 Carbonic Acid HCO3/H2CO3 Ratio ABG pH ABG pCO2 ABG pO2 ABG HCO3 ABG O2 Saturation ABG Base Excess FiO2 Sodium 140.4 Potassium 3.6 Chloride 109 H Carbon Dioxide 21 L Anion Gap 10 BUN 12 Creatinine 0.61 Est GFR ( Amer) > 60 Glucose 184 H Calcium 8.6 Urine Color YELLOW Urine Appearance CLEAR Urine pH 6.0 Ur Specific [place] 1.010 Urine Protein NEGATIVE Urine Glucose (UA) 50 H Urine Ketones NEGATIVE Urine Blood MODERATE H Urine Nitrite NEGATIVE Ur Leukocyte Esterase NEGATIVE Urine WBC (Auto) 1 Urine RBC (Auto) 0 12/18/18 09:48 WBC RBC Hgb Hct MCV MCH MCHC RDW Plt Count Carbonic Acid 0.91 L HCO3/H2CO3 Ratio 23:1 ABG pH 7.47 H ABG pCO2 30.2 L ABG pO2 68.4 L ABG HCO3 21.5 ABG O2 Saturation 94.9 ABG Base Excess -1.4 FiO2 48% Sodium Potassium Chloride Carbon Dioxide Anion Gap BUN Creatinine Est GFR ( Amer) Glucose Calcium Urine Color Urine Appearance Urine pH Ur Specific [place] Urine Protein Urine Glucose (UA) Urine Ketones Urine Blood Urine Nitrite Ur Leukocyte Esterase Urine WBC (Auto) Urine RBC (Auto) 12/16/18 15:27 Troponin I < 0.012 Impressions: Chest/Abdomen CTA 12/16/18 17:01 IMPRESSION: Diffuse patchy consolidation and ground-glass opacity throughout t he left lung, small areas are also noted in the right lung. Trace left pleural effusion. No emboli visualized in the main pulmonary arteries or the segmental branches. Chest X-Ray 12/18/18 07:58 IMPRESSION: Significant interval worsening of heterogeneous bilateral airspace disease, more conspicuous in the left lung. Findings are concerning for worsened multifocal infection. Assessment and Plan - Diagnosis (1) Acute respiratory failure with hypoxia Is this a current diagnosis for this admission?: Yes (2) PNA (pneumonia) Qualifiers: Aspiration pneumonia type: unspecified Laterality: left Lung location: unspecified part of lung Is this a current diagnosis for this admission?: Yes (3) Elevated blood pressure reading without diagnosis of hypertension Is this a current diagnosis for this admission?: Yes (4) Hyperglycemia Is this a current diagnosis for this admission?: Yes (5) Morbid obesity Is this a current diagnosis for this admission?: Yes (6) Hemoptysis Is this a current diagnosis for this admission?: Yes (7) Anxiety Is this a current diagnosis for this admission?: Yes - Plan Summary Plan Summary: (1) PNA (pneumonia) Severe bilateral pneumonia. Continue IV vancomycin, IV Levaquin, IV cefepime. Monitor blood culture and sputum culture. Continue aggressive pulmonary toilet. Continue oxygen as needed and wean down as tolerated. (2) Acute respiratory failure with hypoxia Continue high flow nasal cannula oxygen. Will consult time study observer for possible transfer to the ICU. Awaiting a callback from Dr. Billy. (3) Hemoptysis Most likely due to pneumonia. Monitor hemoglobin hematocrit. Registered Diet Technician hemoptysis. (4) Hyperglycemia Hemoglobin A1c is 6.3. Continue with a diabetic diet initially and will have before meals and at bedtime Accu-Cheks performed with sliding scale insulin for hyperglycemia and a hypoglycemic protocol in place. (5) Anxiety She was started on admission on Valium 5 mg p.o. every 4 hours as needed anxiety or agitation. (6) Morbid obesity On admission, tire repairer evaluation requested. (7) Elevated blood pressure reading without diagnosis of hypertension Patient's blood pressure will be followed closely throughout her hospital stay. Continue hydralazine 20 mg IV every 4 hours and or metoprolol 5 mg IV every 4 hours will be used to control blood pressures (systolic blood pressure greater than 160 and/or diastolic blood pressure greater than 100.
[2018-12-18] MEDS: LEVOFLOXACIN 750 MG/D5W RTU 750 MG/150 ML RTUPB IV SCH (12:52)
[2018-12-18] MEDS: ACETAMINOPHEN 325 MG TABLET PO PRN ×2 (12:52→22:14)
[2018-12-18] MEDS ORDERED: FUROSEMIDE INJ/PF 40 MG/4 ML SDV ONE (15:48)
[2018-12-18 15:51] LABS: ANION GAP 11 (5-19); BLOOD UREA NITROGEN 14 mg/dL (7-20); CALCIUM 8.6 mg/dL (8.4-10.2); CARBON DIOXIDE 21 mmol/L (22-30); CHLORIDE 109 mmol/L (98-107); GLUCOSE 198 mg/dL (75-110); POTASSIUM 3.6 mmol/L (3.6-5.0)
[2018-12-18 15:53] LABS: VANCOMYCIN,TROUGH 17.7 ug/mL (5.0-20.0)
--- NOTE | 2018-12-18 16:10 | CRITICAL CARE ADMISSION REPORT ---
HPI Date:: 12/18/18 Reason for ICU Reason:: acute hypoxic respiratory failure. ARDS. HCAP HPI: Pt is a 43 yo woman who was admitted to the hospital on 12/16 for PNA. She has been treated with IV ATBX and IV steroids. Her respiratory status has worsened and she has experienced worsening hypoxia. Pt has been transferred to the ICU. Upon arrival to the ICU she is on a 10 liter NRB mask. She admits to having an about one week ago. She denies any vaginal bleeding, vaginal discharge, or abdominal pain. She states she smokes cigarettes occasionally and does not vape. She states she tried vaping one time about 6 months ago but has not done it since. She denies any sick contacts. She states the last time she had PNA was after the of her youngest son. - Diagnosis/Plan (1) Acute respiratory failure with hypoxia Is this a current diagnosis for this admission?: Yes (2) Respiratory distress, acute Is this a current diagnosis for this admission?: Yes (3) PNA (pneumonia) Qualifiers: Aspiration pneumonia type: unspecified Laterality: bilateral Lung location: unspecified part of lung Is this a current diagnosis for this admission?: Yes (4) HTN (hypertension) Is this a current diagnosis for this admission?: Yes (5) Sepsis Qualifiers: Sepsis type: sepsis due to unspecified organism Sepsis acute organ dysfunction status: with acute organ dysfunction Severe sepsis acute organ dysfunction type: acute respiratory failure Acute respiratory failure type: with hypoxia Severe sepsis shock status: without septic shock Qualified Code(s): A41.9 - Sepsis, unspecified organism; R65.20 - Severe sepsis without septic shock; J96.01 - Acute respiratory failure with hypoxia Is this a current diagnosis for this admission?: Yes (6) Hyperglycemia Is this a current diagnosis for this admission?: Yes (7) Morbid obesity Is this a current diagnosis for this admission?: Yes Past Medical History Cardiac Medical History: Denies: Coronary Artery Disease, DVT, Hypertension, Pulmonary Embolism Pulmonary Medical History: Reports: Pneumonia - 5 years ago, Other - Hemoptysis with pneumonia Denies: Asthma, Chronic Obstructive Pulmonary Disease (COPD) EENT Medical History: Denies: Cataracts, Ears - Hearing aids Neurological Medical History: Denies: Hemorrhagic CVA, Ischemic CVA, Seizures Endocrine Medical History: Reports: Gestational Diabetes, Obesity Denies: Diabetes Mellitus Type 1, Diabetes Mellitus Type 2, Hyperthyroidism, Hypothyroidism Renal/ Medical History: Denies: Chronic Kidney Disease, Nephrolithiasis Malignancy Medical History: Reports: None GI Medical History: Denies: Cirrhosis, Crohn's Disease, Gastroesophageal Reflux Disease, Hepatitis, Peptic Ulcer Disease, Ulcerative Colitis Musculoskeltal Medical History: Denies: Arthritis, Gout Skin Medical History: Denies: Eczema, Psoriasis Psychiatric Medical History: Reports: Attention Deficit Hyperactivity Disorder, Depression Denies: Alcohol Dependency, Substance Abuse, Tobacco Dependency Traumatic Medical History: Reports: None Hematology: Denies: Anemia, Bleeding Tendencies Infectious Medical History: Reports: None Past Surgical History Past Surgical History: Reports: Cholecystectomy Social/Family History - Social History Lives with: Friend Smoking Status: Former Smoker Frequency of Alcohol Use: None Hx Recreational Drug Use: No Drugs: None Hx Prescription Drug Abuse: No - Medication/Allergies Home Medications: Clonazepam [Klonopin 1 mg Tablet] 1 mg PO Q8HP PRN 12/17/18 Dextroamphetamine/Amphetamine [Dextroamp-Amphetamin 30 mg Tab] 90 mg PO ACBRKFST 12/17/18 Allergies/Adverse Reactions: codeine [Codeine] Allergy (Verified 07/29/18 15:33) Review of Systems Review of Systems: per HPI Physical Exam Vital Signs: Temp Pulse Resp BP Pulse Ox 99.2 F 97 22 H 149/78 H 93 12/18/18 03:32 12/18/18 14:00 12/18/18 12:48 12/18/18 03:32 12/18/18 13:07 Intake & Output 12/17/18 12/18/18 12/19/18 06:59 06:59 06:59 Intake Total 1100 4253 300 Output Total 0 2000 Balance 1100 2253 300 Weight 130.7 kg 128.5 kg Weight/Height Weight 128.5 kg Height 5 ft 4 in General appearance: PRESENT: no acute distress, well-developed, well-nourished, other - obese Respiratory exam: PRESENT: decreased breath sounds, tachypnea Cardiovascular exam: PRESENT: RRR GI/Abdominal exam: PRESENT: soft, other - non-tender, non-distended Extremities exam: PRESENT: other - no edema Neurological exam: PRESENT: alert, awake Laboratory/Radiographs Laboratory Results: 12/18/18 04:19 12/18/18 14:54 12/18/18 12/18/1819 04:19 04:19 08:42 WBC 16.2 H RBC 3.94 Hgb 10.8 L Hct 32.1 L MCV 82 MCH 27.4 MCHC 33.6 RDW 14.3 H Plt Count 215 Carbonic Acid HCO3/H2CO3 Ratio ABG pH ABG pCO2 ABG pO2 ABG HCO3 ABG O2 Saturation ABG Base Excess FiO2 Sodium 140.4 Potassium 3.6 Chloride 109 H Carbon Dioxide 21 L Anion Gap 10 BUN 12 Creatinine 0.61 Est GFR ( Amer) > 60 Glucose 184 H Calcium 8.6 Urine Color YELLOW Urine Appearance CLEAR Urine pH 6.0 Ur Specific [place] 1.010 Urine Protein NEGATIVE Urine Glucose (UA) 50 H Urine Ketones NEGATIVE Urine Blood MODERATE H Urine Nitrite NEGATIVE Ur Leukocyte Esterase NEGATIVE Urine WBC (Auto) 1 Urine RBC (Auto) 0 12/18/18 12/18/18 09:48 14:54 WBC RBC Hgb Hct MCV MCH MCHC RDW Plt Count Carbonic Acid 0.91 L HCO3/H2CO3 Ratio 23:1 ABG pH 7.47 H ABG pCO2 30.2 L ABG pO2 68.4 L ABG HCO3 21.5 ABG O2 Saturation 94.9 ABG Base Excess -1.4 FiO2 48% Sodium 140.6 Potassium 3.6 Chloride 109 H Carbon Dioxide 21 L Anion Gap 11 BUN 14 Creatinine 0.70 Est GFR ( Amer) > 60 Glucose 198 H Calcium 8.6 Urine Color Urine Appearance Urine pH Ur Specific [place] Urine Protein Urine Glucose (UA) Urine Ketones Urine Blood Urine Nitrite Ur Leukocyte Esterase Urine WBC (Auto) Urine RBC (Auto) 12/16/18 15:27 Troponin I < 0.012 Impressions: Chest/Abdomen CTA 12/16/18 17:01 IMPRESSION: Diffuse patchy consolidation and ground-glass opacity throughout the left lung, small areas are also noted in the right lung. Trace left pleural effusion. No emboli visualized in the main pulmonary arteries or the segmental branches. Chest X-Ray 12/18/18 07:58 IMPRESSION: Significant interval worsening of heterogeneous bilateral airspace disease, more conspicuous in the left lung. Findings are concerning for worsened multifocal infection. Critical Time -: The care of a critically ill patient is dynamic. This note represents a static moment in the admission process. orders and treatments may be given simulataneously and urgentl, and time is not group sales representative of the treatment process. This patient requires Critical Care secondary to life threating organ or limb dysfunction. Without the need for Critical Care services, the patient is at risk for increasid mortality and morbidity. Provider Note Provider Note: Assesment: Critically ill 43 yo woman with acute hypoxic respiratory failure, severe sepsis, HCAP, ARDS, HTN, morbid obesity, hyperglycemia. Plan: 1. Respiratory: acute hypoxic respiratory failure. Continue supplemental O2 via NRB. Will start HFNC if needed. 2. Pulmonary: ARDS, HCAP. Continue vanc,cefepime, levaquin, steroids. Will d/c IVF and will give lasix 3. CV: HTN. D/C IVF. Give lasix. Check echo 4. ID: severe sepsis, HCAP. Continue vanc, cefepime, levaquin. 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 No signs or symptoms of endometritis 6. Endocrine: hyperglycemia. On steroids. Accuchecks, SSI (pt refusing insulin) 7. Nutrition: NPO 8. Prophylaxis: lovenox, scds. Critical care time= 50 min, excluding procedures
[2018-12-18] MEDS: FUROSEMIDE INJ/PF 40 MG/4 ML SDV IV SCH ×2 (16:58→21:51)
[2018-12-18 18:23] LABS: A TYPE INFLUENZA AG NEGATIVE (NEGATIVE); B INFLUENZA AG NEGATIVE (NEGATIVE)
[2018-12-18] MEDS: CLONAZEPAM 1 MG TABLET PO SCH ×2 (18:30→18:40)
[2018-12-18] MEDS: HYDRALAZINE HCL INJ/PF 20 MG/1 ML SDV IV PRN (18:32)
[2018-12-18] MEDS: CLONAZEPAM 1 MG TABLET PO PRN (19:29)
[2018-12-18] MEDS ORDERED: GLUCAGON,HUMAN RECOMB 1 MG INJ SUBCUT PRN (20:39)
[2018-12-18] MEDS ORDERED: DEXTROSE 40% GEL 15 GM TUBE PO PRN ×2 (20:39)
[2018-12-18] MEDS ORDERED: DEXTROSE 50%-WATER 25 GM/50 ML DISP.SYRIN IV PRN ×2 (20:39)
[2018-12-18] MEDS: INSULIN REG, HUMAN 100 UNIT/ML 3 ML VIAL (PYX) SUBCUT PRN (21:48)
[2018-12-18] MEDS: KETOROLAC TROMETHAMINE INJ/PF 30 MG/1 ML SDV IV PRN (23:42)
[2018-12-19] MEDS: IPRATROPIUM BROMIDE 0.02% NEB 0.5 MG/2.5 ML AMPUL NEB SCH ×5 (00:34→15:39)
[2018-12-19] MEDS: VANCOMYCIN HCL 1,250 MG in DEXTROSE 5%-WATER 250 ML IV SCH ×2 (02:22→09:16)
[2018-12-19] MEDS: HYDRALAZINE HCL INJ/PF 20 MG/1 ML SDV IV PRN (02:23)
[2018-12-19] MEDS: ACETAMINOPHEN 325 MG TABLET PO PRN (03:09)
[2018-12-19] MEDS: CLONAZEPAM 1 MG TABLET PO PRN ×2 (03:10→12:13)
[2018-12-19 03:37] LABS: HEMATOCRIT 32.6 % (36.0-47.0); HEMOGLOBIN 10.7 g/dL (12.0-15.5); MEAN CORPUSCULAR HEMOGLOBIN 26.8 pg (27.0-33.4); MEAN CORPUSCULAR HGB CONC 32.9 g/dL (32.0-36.0); MEAN CORPUSCULAR VOLUME 81 fl (80-97); PLATELET COUNT 255 10^3/uL (150-450); RED CELL DISTRIBUTION WIDTH 14.6 % (11.5-14.0); WHITE BLOOD COUNT 17.9 10^3/uL (4.0-10.5)
[2018-12-19 03:56] LABS: ANION GAP 10 (5-19); BLOOD UREA NITROGEN 19 mg/dL (7-20); CALCIUM 8.4 mg/dL (8.4-10.2); CARBON DIOXIDE 24 mmol/L (22-30); CHLORIDE 107 mmol/L (98-107); GLUCOSE 179 mg/dL (75-110); POTASSIUM 3.3 mmol/L (3.6-5.0)
[2018-12-19] MEDS: METHYLPREDNISOLONE INJ 40 MG/1 ML SDV IV SCH (05:28)
[2018-12-19] MEDS: ACETYLCYSTEINE 20% SOLN 800 MG/4 ML VIAL.NEB NEB SCH (08:51)
[2018-12-19] MEDS ORDERED: HYDRALAZINE HCL INJ/PF 20 MG/1 ML SDV IV PRN (09:00)
[2018-12-19] MEDS ORDERED: METOPROLOL TARTRATE PF/INJ 5 MG/5 ML SDV IV PRN (09:00)
[2018-12-19] MEDS: INSULIN REG, HUMAN 100 UNIT/ML 3 ML VIAL (PYX) SUBCUT PRN ×2 (09:14→12:14)
[2018-12-19] MEDS: FAMOTIDINE 20 MG TABLET PO SCH (09:15)
[2018-12-19] MEDS: CEFEPIME 2 GM/D5W RTU 2 GM/50 ML RTUPB IV SCH (09:15)
[2018-12-19] MEDS: DOCUSATE SODIUM 100 MG CAPSULE PO SCH (09:15)
[2018-12-19] MEDS ORDERED: ENOXAPARIN SODIUM INJ 40 MG/0.4 ML DISP.SYRIN SUBCUT SCH (10:00)
--- NOTE | 2018-12-19 11:15 | PDOC PROGRESS REPORT ---
Subjective Progress Note for:: 12/19/18 Subjective:: Feeling a bit better, wants to eat, breathing improved Reason For Visit: HEMOPTYSIS,PNEUMONIA Physical Exam Vital Signs: Temp Pulse Resp BP Pulse Ox 99.5 F 95 24 H 161/76 H 96 12/19/18 06:00 12/19/18 10:07 12/19/18 10:27 12/19/18 07:41 12/19/18 10:27 Intake & Output 12/18/18 12/19/18 12/20/18 06:59 06:59 06:59 Intake Total 4253 1100 50 Output Total 1999 3850 225 Balance 2280 -9230 -992 Weight 128.5 kg 129.7 kg General appearance: PRESENT: no acute distress, cooperative, well-developed Head exam: PRESENT: atraumatic Eye exam: PRESENT: EOMI Ear exam: PRESENT: normal external ear exam Mouth exam: PRESENT: dry mucosa Neck exam: PRESENT: full ROM Respiratory exam: PRESENT: crackles - Mild crackles at bases, unlabored Cardiovascular exam: PRESENT: RRR Pulses: PRESENT: normal radial pulses Vascular exam: PRESENT: normal capillary refill GI/Abdominal exam: PRESENT: soft Rectal exam: PRESENT: deferred Extremities exam: PRESENT: full ROM Musculoskeletal exam: PRESENT: ambulatory, full ROM Neurological exam: PRESENT: alert, awake, oriented to person, oriented to place, oriented to time, oriented to situation Skin exam: PRESENT: dry, intact, normal color Results Laboratory Results: 12/19/18 03:29 12/19/18 03:29 12/18/18 12/19/18 12/19/18 14:54 03:29 03:29 WBC 17.9 H RBC 4.00 Hgb 10.7 L Hct 32.6 L MCV 81 MCH 26.8 L MCHC 32.9 RDW 14.6 H Plt Count 255 Sodium 140.6 140.6 Potassium 3.6 3.3 L Chloride 109 H 107 Carbon Dioxide 21 L 24 Anion Gap 11 10 BUN 14 19 Creatinine 0.70 0.79 Est GFR ( Amer) > 60 > 60 Glucose 198 H 179 H Calcium 8.6 8.4 12/16/18 15:27 Troponin I < 0.012 Impressions: Chest/Abdomen CTA 12/16/18 17:01 IMPRESSION: Diffuse patchy consolidation and ground-glass opacity throughout the left lung, small areas are also noted in the right lung. Trace left pleural effusion. No emboli visualized in the main pulmonary arteries or the segmental branches. Chest X-Ray 12/18/18 07:58 IMPRESSION: Significant interval worsening of heterogeneous bilateral airspace disease, more conspicuous in the left lung. Findings are concerning for worsened multifocal infection. Assessment & Plan - Diagnosis (1) Hemoptysis Is this a current diagnosis for this admission?: Yes Plan: The presenting symptom has resolved (2) Sepsis Qualifiers: Sepsis type: sepsis due to unspecified organism Sepsis acute organ dysfunction status: with acute organ dysfunction Severe sepsis acute organ dysfunction type: acute respiratory failure Acute respiratory failure type: with hypoxia Severe sepsis shock status: without septic shock Qualified Code(s): A41.9 - Sepsis, unspecified organism; R65.20 - Severe sepsis without septic shock; J96.01 - Acute respiratory failure with hypoxia Is this a current diagnosis for this admission?: Yes Plan: Severe sepsis is resolved. WBC is still elevated but this is likely due to steroids now decreased (3) Acute respiratory failure with hypoxia Is this a current diagnosis for this admission?: Yes Plan: She still has an oxygen need. Not in failure but this is limiting her from being discharged (4) HTN (hypertension) Qualifiers: Hypertension type: essential hypertension Qualified Code(s): I10 - Essential (primary) hypertension Is this a current diagnosis for this admission?: Yes Plan: Stable on current medications (5) Hyperglycemia Is this a current diagnosis for this admission?: Yes Plan: Shouldinprove with lowering steroids (6) PNA (pneumonia) Qualifiers: Aspiration pneumonia type: unspecified Laterality: bilateral Lung location: unspecified part of lung Is this a current diagnosis for this admission?: Yes Plan: Continue current antibiotics. She had a PaO2/FiO2 gradient close to ARDS on admission. CXR is lagging behind clinical picture. If she improves throughout the day transfer to floor in AM. - Time Time Spent with patient: 15-24 minutes Total Critical Time (Minutes): 35 Medications reviewed and adjusted accordingly: Yes Anticipated discharge: Home Within: within 72 hours - Inpatient Certification Medical Necessity: Need Close Monitoring Due to Risk of Patient Decompensation
[2018-12-19] MEDS: LEVOFLOXACIN 750 MG/D5W RTU 750 MG/150 ML RTUPB IV SCH (12:13)
[2018-12-19] MEDS: KETOROLAC TROMETHAMINE INJ/PF 30 MG/1 ML SDV IV PRN (12:28)
[2018-12-19] MEDS ORDERED: METHYLPREDNISOLONE INJ 40 MG/1 ML SDV IV SCH (14:00)
[2018-12-19 14:44] VITALS: BP 140/57
--- NOTE | 2018-12-19 16:47 | PDOC DISCHARGE SUMMARY ---
General - Admit/Disc Date/PCP Admission Date/Primary Care Provider: 12/16/18 19:27 Discharge Date: 12/19/18 - Discharge Diagnosis (1) Hemoptysis Is this a current diagnosis for this admission?: Yes Summary: Resolved (2) Sepsis Is this a current diagnosis for this admission?: Yes Summary: Resolved (3) Acute respiratory failure with hypoxia Is this a current diagnosis for this admission?: Yes Summary: Still active and in need of oxygen and antibiotics (4) HTN (hypertension) Is this a current diagnosis for this admission?: Yes (5) Hyperglycemia Is this a current diagnosis for this admission?: Yes Summary: Improved (6) PNA (pneumonia) Is this a current diagnosis for this admission?: Yes Summary: Clinically improved but not advisable for discharge - Additional Information Resuscitation Status: Full Code Discharge Diet: Other (Comments) - On regular but signed herself out Discharge Activity: Activity As Tolerated Home Medications: Clonazepam [Klonopin 1 mg Tablet] 1 mg PO Q8HP PRN 12/17/18 Dextroamphetamine/Amphetamine [Dextroamp-Amphetamin 30 mg Tab] 90 mg PO ACBRKFST 12/17/18 History of Present Illness History of Present Illness: NEETU GIRARD is a 43 year old female Hospital Course Hospital Course: Admitted for PNA connumity acquired with an ARDS pattern, ALI physiology. Worsened and needed the ICU. Was on 28% highflow and despite efforts by nursing, myself and her daughter, signed out AMA. Physical Exam Vital Signs: Temp Pulse Resp BP Pulse Ox 99.5 F 90 26 H 140/57 H 97 12/19/18 06:00 12/19/18 15:39 12/19/18 15:39 12/19/18 10:41 12/19/18 15:39 Intake & Output 12/18/18 12/19/18 12/20/18 06:59 06:59 06:59 Intake Total 4253 1250 450 Output Total 1999 3850 225 Balance 2253 -2600 225 Weight 128.5 kg 129.7 kg General appearance: PRESENT: mild distress, well-developed Eye exam: PRESENT: EOMI Ear exam: PRESENT: normal external ear exam Mouth exam: PRESENT: moist Respiratory exam: PRESENT: crackles Cardiovascular exam: PRESENT: RRR GI/Abdominal exam: PRESENT: soft Rectal exam: PRESENT: deferred Extremities exam: PRESENT: full ROM Musculoskeletal exam: PRESENT: ambulatory Neurological exam: PRESENT: alert, oriented to person, oriented to place, o riented to time, oriented to situation Psychiatric exam: PRESENT: appropriate affect Results Laboratory Results: 12/19/18 03:29 12/19/18 03:29 12/19/18 12/19/18 03:29 03:29 WBC 17.9 H RBC 4.00 Hgb 10.7 L Hct 32.6 L MCV 81 MCH 26.8 L MCHC 32.9 RDW 14.6 H Plt Count 255 Sodium 140.6 Potassium 3.3 L Chloride 107 Carbon Dioxide 24 Anion Gap 10 BUN 19 Creatinine 0.79 Est GFR ( Amer) > 60 Glucose 179 H Calcium 8.4 12/18/18 11:05 Sputum Gram Stain - Final 12/18/18 11:05 Sputum Sputum Culture - Final C.albicans/C.dubliniensis Reduced Normal Kisha 12/16/18 15:27 Troponin I < 0.012 Impressions: Chest/Abdomen CTA 12/16/18 17:01 IMPRESSION: Diffuse patchy consolidation and ground-glass opacity throughout the left lung, small areas are also noted in the right lung. Trace left pleural effusion. No emboli visualized in the main pulmonary arteries or the segmental branches. Chest X-Ray 12/18/18 07:58 IMPRESSION: Significant interval worsening of heterogeneous bilateral airspace disease, more conspicuous in the left lung. Findings are concerning for worsened multifocal infection. Qualifiers PATIENT BEING DISCHARGED WITH ANY OF THE FOLLOWING DIAGNOSIS: No VTE patient discharged on overlapping Therapy?: No Reason(s) for not prescribing Overlap Therapy:: Drug declined by patient Stroke Pt being discharged on Anti-thrombolytic therapy?: No Reason(s) for not prescribing Anti-thrombolytic therapy:: Drug declined by patient Acute Heart Failure - Is this a Heart Failure Patient?: No Follow-up Appointment scheduled within 7 days?: No, document reason - Pt insisted on signing herself out.
--- NOTE | 2018-12-20 20:59 | XCELERA REPORT ---
[address] [address] Transthoracic Echocardiogram Report Name: NEETU GIRARD Age: 43 yrs Gender: Female : 1975 Patient Status: Inpatient Patient Location: ICU^609^A Study Date: 12/19/2018 11:55 AM Height: 64 in Weight: 283 lb BSA: 2.3 m2 Procedure: A two-dimensional transthoracic echocardiogram with color flow and Doppler was performed. Study Quality: Good. Reason For Study: hypoxia History: Shortness of breath. HYPOXIA. Ordering Physician: CARLI WATKINS Performed By: Susie Brito Interpretation Summary The left ventricle is normal in size. There is normal left ventricular wall thickness. LV EF is 65% The left ventricular ejection fraction is within normal limits. Doppler measurements suggest impaired left ventricular relaxation, which is associated with grade I/IV or mild diastolic dysfunction The left ventricular wall motion is normal. There is no thrombus. No ASD ,VSD ,or PFO seen The right ventricle is mildly dilated. The right ventricular systolic function is normal. The right atrium is normal. The left atrial size is normal. There is no evidence of mitral valve prolapse. There is no vegetation seen on the mitral valve. There is no mitral valve stenosis. There is a trace to mild amount of mitral regurgitation There is no aortic valvular vegetation. There is aortic sclerosis without aortic stenosis. There is no LVOT obstruction. No aortic regurgitation is present. There is no tricuspid stenosis. There is a moderate to severe amount of tricuspid regurgitation There is servere pulmonary hypertension by echo RVSP is at least 62 mm of Hg , with RA mean of atleast 20. There is no pulmonic valvular stenosis. There is a trace amount of pulmonic regurgitation The aortic root is normal size. The inferior vena cava appeared dilated and did not change with respiration (RAP > 20 mmHg) There is no pericardial effusion. MMode/2D Measurements & Calculations RVDd: 4.2 cm LVIDd: 5.2 cm FS: 36.4 % Ao root diam: 2.7 cm IVSd: 1.1 cm LVIDs: 3.3 cm EDV(Teich): 128.1 ml Ao root area: 5.9 cm2 LVPWd: 1.1 cm ESV(Teich): 43.8 ml LA dimension: 3.9 cm EF(Teich): 65.8 % Doppler Measurements & Calculations MV E max diana: MV P1/2t max diana: Ao V2 max: LV V1 max P.2 cm/sec 145.6 cm/sec 211.7 cm/sec 11.1 mmHg MV A max diana: MV P1/2t: 60.3 msec Ao max PG: LV V1 max: 148.7 cm/sec MVA(P1/2t): 3.6 cm2 17.9 mmHg 166.6 cm/sec MV E/A: 0.98 MV dec slope: 707.0 cm/sec2 MV dec time: 0.20 sec PA V2 max: TR max diana: MV P1/2t-pr_phl: 135.7 cm/sec 324.4 cm/sec 60.3 msec PA max P.4 mmHgTR max P.1 mmHg Left Ventricle The left ventricle is normal in size. There is normal left ventricular wall thickness. LV EF is 65%. The left ventricular ejection fraction is within normal limits. Doppler measurements suggest impaired left ventricular relaxation, which is associated with grade I/IV or mild diastolic dysfunction. The left ventricular wall motion is normal. There is no thrombus. No ASD ,VSD ,or PFO seen. Right Ventricle The right ventricle is mildly dilated. The right ventricular systolic function is normal. Atria The right atrium is normal. The left atrial size is normal. Mitral Valve There is no evidence of mitral valve prolapse. There is no vegetation seen on the mitral valve. There is no mitral valve stenosis. There is a trace to mild amount of mitral regurgitation. Aortic Valve There is no aortic valvular vegetation. There is aortic sclerosis without aortic stenosis. There is no LVOT obstruction. No aortic regurgitation is present. Tricuspid Valve There is no tricuspid stenosis. There is a moderate to severe amount of tricuspid regurgitation. There is servere pulmonary hypertension by echo. RVSP is at least 62 mm of Hg , with RA mean of atleast 20. Pulmonic Valve There is no pulmonic valvular stenosis. There is a trace amount of pulmonic regurgitation. Great Vessels The aortic root is normal size. The inferior vena cava appeared dilated and did not change with respiration (RAP > 20 mmHg). Effusions There is no pericardial effusion. : CARLI WATKINS Lakshmi
--- NOTE | 2018-12-25 15:44 | Physician Advisory Note ---
Physician Advisor ProgressNote .: Pursuant to the plan for [facility], I have reviewed the medical record for this patient. 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 dx severe sepsis. Spoke w/Dr. Billy, the ICU attg who initially gave the dx, today for further details. She believes pt had HCAP, which was likely due to "MRSA, GNs, or anaerobes - that's what HCAP is". Not certain which of the 3 bacteria was most likely in this case; only saw pt 1 day, when pt at her worst. Pt developed ARDS due to infxn in this case. "ARDS is typically caused by PNA with sepsis." Dr. Billy states sepsis "is defined as 'documented source of infxn + organ failure', & pt had that (sepsis) present on admission, as she came in with leukocytosis and PNA & was needing Bipap in the ED with high flow O2." - She noted she is not bothered that pt's initial lactate levels were <2.0, as "I treat the pt, not the lab value, and this pt was extremely ill ...." Therefore, it appears dx.s included "severe sepsis, POA, due to PNA, with associated Ac Hypoxemic Resp Failure that progressed to ARDS" in this case, along with "HCAP, due to MRSA, Gram Neg, or anaerobic bacteria", per Dr. Billy. CK
== END 2018-12-19 15:50 | disposition left against medical advice (07) | DRG 871 ==
LOC: ER 14:37 → EH 19:27 → 3S 12-17 → ICU 12-18 15:38
PROVIDERS: ADMIT Emergency Medicine; ATTEND Internal Medicine
PROC: 5A09357 Assistance with Respiratory Ventilation, Less than 24 Consecutive Hours, Continuous Positive Airway Pressure (ICD-10-PCS; principal; 2018-12-16)
DX: A41.9 Sepsis, unspecified organism (principal); J80 Acute respiratory distress syndrome; J18.9 Pneumonia, unspecified organism; R04.2 Hemoptysis; Z68.42 Body mass index [BMI] 45.0-49.9, adult; I10 Essential (primary) hypertension; E11.65 Type 2 diabetes mellitus with hyperglycemia; F17.210 Nicotine dependence, cigarettes, uncomplicated; F90.9 Attention-deficit hyperactivity disorder, unspecified type; E66.01 Morbid (severe) obesity due to excess calories; F32.9 Major depressive disorder, single episode, unspecified; F41.9 Anxiety disorder, unspecified; Z88.5 Allergy status to narcotic agent; Z90.49 Acquired absence of other specified parts of digestive tract; Z79.899 Other long term (current) drug therapy
CPT/HCPCS: 36415; 36600; 71045; 71046; 71275; 80048; 80053; 80061; 80202; 81001; 81025; 82803; 82962; 83036; 83605; 84439; 84443; 84481; 84484; 85025; 85027; 86850; 86900; 86901; 87040; 87070; 87205; 87804; 93005; 93010; 93306; 94640; 94660; 96365; 96366; 96367; 96375; 99291; J0360; J0456; J0692; J0696; J1650; J1815; J1885; J1940; J1956; J2060; J2300; J2920; J3230; J3370; J3490; J7060; J7120

== ENCOUNTER 2020-01-20 05:54 | Emergency (ER) | payer MEDICAID ==
[2020-01-20 06:09] VITALS: BP 150/85
[2020-01-20] MEDS ORDERED: ACETAMINOPHEN 325 MG TABLET PO ONE (06:18)
[2020-01-20] MEDS ORDERED: ACETAMINOPHEN 325 MG TABLET ONE (06:20)
== END 2020-01-20 08:49 | disposition left against medical advice (07) ==
LOC: ER 05:54
DX: Z53.21 Procedure and treatment not carried out due to patient leaving prior to being seen by health care provider (principal)

== ENCOUNTER 2020-01-22 16:33 | Emergency (ER) | payer MEDICAID ==
--- NOTE | 2020-01-22 16:41 | ER Document Report ---
HPI - HPI Time Seen by Provider: 01/22/20 16:35 - REPRODUCTIVE Reproductive: DENIES: : Past Medical History - General Information source: Patient - Social History Family History: Reviewed & Not Pertinent - Past Medical History Cardiac Medical History: Denies: Hx Coronary Artery Disease, Hx DVT, Hx Hypertension, Hx Pulmonary Em bolism Pulmonary Medical History: Reports: Hx Pneumonia - 5 years ago Denies: Hx Asthma, Hx COPD Neurological Medical History: Denies: Hx Seizures Endocrine Medical History: Denies: Hx Diabetes Mellitus Type 1, Hx Diabetes Mellitus Type 2, Hx Hyperthyroidism, Hx Hypothyroidism Renal/ Medical History: Denies: Hx Peritoneal Dialysis GI Medical History: Denies: Hx Cirrhosis, Hx Crohn's Disease, Hx Gastroesophageal Reflux Disease, Hx Hepatitis, Hx Ulcerative Colitis Musculoskeletal Medical History: Denies Hx Arthritis, Denies Hx Gout Skin Medical History: Denies Hx Eczema, Denies Hx Psoriasis Psychiatric Medical History: Reports: Hx Anxiety, Hx Attention Deficit Hyperactivity Disorder, Hx Depression Infectious Medical History: Denies: Hx Hepatitis Past Surgical History: Reports: Hx Cholecystectomy, Hx Gynecologic Surgery - D&C - Immunizations Immunizations up to date: Yes Hx Diphtheria, Pertussis, Tetanus Vaccination: Yes Vertical Provider Document - CONSTITUTIONAL Agree With Documented VS: Yes Exam Limitations: No Limitations General Appearance: WD/WN - INFECTION CONTROL TRAVEL OUTSIDE OF THE [place] IN LAST 30 DAYS: No Discharge - Discharge Instructions: Dentist, Toothache ([facility]), Dental Infection or Abscess ([facility]), Clindamycin ([facility]) Additional Instructions: *You have been evaluated for dental pain *Take medications as prescribed *Follow up with dentist *Return to ED for worsening condition, changes, needs Referrals: JOI PALACIOS MD [ACTIVE STAFF] - Follow up as needed
[2020-01-22 16:44] VITALS: BP 150/93
[2020-01-22] MEDS ORDERED: LIDOCAINE 2% VISCOUS SOLN 15 ML UDCUP PO ONE (16:44)
[2020-01-22] MEDS ORDERED: PENICILLIN V POTASSIUM 500 MG TABLET PO ONE (16:44)
--- NOTE | 2020-01-22 16:45 | ER Document Report ---
ED Oral Problem - General Chief Complaint: Toothache Stated Complaint: TOOTHACHE Time Seen by Provider: 01/22/20 16:35 Primary Care Provider: JOI PALACIOS MD [ACTIVE STAFF] - Follow up as needed Mode of Arrival: Ambulatory Information source: Patient Notes: 44-year-old female presents to ED for dental pain to the lower jaw. She states is been hurting for about a year but she has not had a doctor or money to go to a dentist. She is alert oriented respirations regular nonlabored speaking in full sentences. She did bring her daughter with her so she would have someone to drive her home. Adult REVIEW OF SYSTEMS: CONSTITUTIONAL : Denies fever, chills, or sweats. Denies recent illness. EENT: Denies eye, ear, throat, or symptoms. Denies nasal or sinus congestion. She has multiple decayed teeth in her lower jaw. She does have multiple teeth that have been broken off and large cavities. CARDIOVASCULAR: Denies chest pain. RESPIRATORY: Denies cough, cold, or chest congestion. Denies shortness of breath, difficulty breathing, or wheezing. GASTROINTESTINAL: Denies abdominal pain. Denies nausea, vomiting, or diarrhea. Denies constipation. Last BM: GENITOURINARY: Denies difficulty urinating, painful urination, burning, frequency, or blood in urine. FEMALE GENITOURINARY: Denies vaginal bleeding, abnormal or irregular periods. LMP: MUSCULOSKELETAL: Denies neck or back pain or joint pain or swelling. SKIN: Denies rash or skin lesions. HEMATOLOGIC : Denies easy bruising or bleeding. LYMPHATIC: Denies swollen, enlarged glands. NEUROLOGICAL: Denies altered mental status or loss of consciousness. Denies headache. Denies weakness or paralysis or loss of use of either side. Denies problems with gait or speech. Denies sensory or motor loss. PSYCHIATRIC: Denies anxiety or stress or depression. ALL OTHER SYSTEMS REVIEWED AND NEGATIVE. PHYSICAL EXAMINATION: GENERAL: Well-appearing, well-nourished and in no acute distress. HEAD: Atraumatic, normocephalic. EYES: Pupils equal round extraocular movements intact, conjunctiva are normal. ENT: Nares patent multiple cavities to the lower gum gingivitis NECK: Normal range of motion LUNGS: No respiratory distress Musculoskeletal: Normal range of motion NEUROLOGICAL: Normal speech, normal gait. PSYCH: Normal mood, normal affect. SKIN: Warm, Dry, normal turgor, no rashes or lesions noted. TRAVEL OUTSIDE OF THE [place] IN LAST 30 DAYS: No - HPI Patient complains to provider of: Toothache Onset: Other Quality of pain: Sharp - Out a year off and on has not followed up with Rocio Metzger Severity: Moderate Pain Level: 2 Associated symptoms: Toothache Relieved by: Nothing Similar symptoms previously: Yes Recently seen / treated by doctor/dentist: No - Related Data Allergies/Adverse Reactions: codeine [Codeine] Allergy (Verified 07/29/18 15:33) Past Medical History - General Information source: Patient - Social History Smoking Status: Never Smoker Frequency of alcohol use: None Drug Abuse: None Lives with: Family Family History: Reviewed & Not Pertinent Patient has suicidal ideation: No Patient has homicidal ideation: No - Past Medical History Cardiac Medical History: Reports: None Pulmonary Medical History: Reports: Hx Pneumonia - 5 years ago EENT Medical History: Reports: None Neurological Medical History: Reports: None Endocrine Medical History: Reports: Other - Gestational diabetes Renal/ Medical History: Reports: None Malignancy Medical History: Reports: None GI Medical History: Reports: None Musculoskeletal Medical History: Reports None Skin Medical History: Reports None Psychiatric Medical History: Reports: Hx Anxiety, Hx Attention Deficit Hyperactivity Disorder, Hx Depression Traumatic Medical History: Reports: None Infectious Medical History: Reports: None Past Surgical History: Reports: Hx Cholecystectomy, Hx Gynecologic Surgery - D&C - Immunizations Immunizations up to date: Yes Hx Diphtheria, Pertussis, Tetanus Vaccination: Yes Physical Exam - Vital signs Vitals: Temp Pulse Resp BP Pulse Ox 98.5 F 110 H 16 150/93 H 100 01/22/20 16:42 01/22/20 16:42 01/22/20 16:42 01/22/20 16:42 01/22/20 16:42 Course - Re-evaluation Re-evalutation: 01/22/20 17:12 Presentation is most consistent with likely an infected tooth. Airway is patent. Vitals within normal limits. Patient is able swallow without any difficulty. There is no significant facial swelling. No evidence of Khang angina, apical abscess, or airway obstruction. Patient will be started on antibiotics. I've instructed to follow-up with dentistry as earliest ability for definitive management. At this time will discharge with return precautions and follow-up recommendations. Verbal discharge instructions given a the bedside and opportunity for questions given. Medication warnings reviewed. Patient is in agreement with this plan and has verbalized understanding of return precautions and the need for primary care follow-up in the next 24-72 hours. - Vital Signs Vital signs: Temp Pulse Resp BP Pulse Ox 98.5 F 110 H 16 150/93 H 100 01/22/20 16:42 01/22/20 16:42 01/22/20 16:42 01/22/20 16:42 01/22/20 16:42 Discharge - Discharge Clinical Impression: Pain due to dental caries Condition: Stable Disposition: HOME, SELF-CARE Instructions: Dentist, Dental Infection or Abscess ([facility]), Oral Narcotic Medication ([facility]) Additional Instructions: TOOTHACHE: Your pain is due to dental decay. The tooth must be repaired in order for you to feel better. You will, therefore, be referred to a dentist. We do not have dentists on the staff at [facility]. Severe swelling or drainage around a tooth usually means a dental abscess. This also requires evaluation and treatment by the dentist, but antibiotics may be prescribed while awaiting dental treatment. You should be rechecked immediately if you develop major swelling of the face, increasing pain, a lump in the jaw or gums, headache, difficulty swallowing, or fever. Salt and soda solution gargle 1 quart of water 1 tablespoon of salt 1 teaspoon of baking soda Mixed 3 ingredients together and boil for 1 minute Placed in a covered quart jar Use 1/2 ounce of cold solution to gargle 3 times a day PENICILLIN V K: You have been given a prescription for Penicillin VK. Your physician has determined that this is the best antibiotic for your condition. Pen VK can be taken with meals, however more of the antibiotic gets into the bloodstream if it's taken on an empty stomach. Penicillin usually has no side effects. However, allergy to penicillins is common. If you have had an allergic reaction to any drug of the penicillin family, you should never take any other penicillin. Notify your doctor at once if you develop hives, itching, swelling, faintness, or shortness of breath. I have given you a syringe full of viscous lidocaine. Please place a small amount of this on to your gums every 4 hours as needed for pain. Please do not use more often than every 4 hours or it can erode the skin on your gums. It is actually lidocaine and will numb the area please do not bite your gums or lip due to the numbing medicine. Oral Narcotic Medication You have been given a norco for pain control. This medication is a narcotic. It's best taken with food, as nausea can result if taken on an empty stomach. Don't operate machinery or drive within six hours of taking this medication. Do not combine this medicine with alcohol, or with any medication which can cause sedation (such as cold tablets or sleeping pills) unless you get permission from the physician. Narcotics tend to cause constipation. If possible, drink plenty of fluids and eat a diet high in fiber and fruits. FOLLOW-UP CARE: You have been referred for follow-up care to the dentists listed below. Call the dentists office for an appointment as you were instructed or within the next two days. If you experience worsening or a significant change in your symptoms, notify the physician immediately or return to the Emergency Department at any time for re-evaluation. [facility] [address] [place], [place] Tuesday mornings, by appointment [facility] [address] [place] [address] [facility] [address] [facility] [address] [facility] [address] [email or web address] [address] [place] [address] [place] [address] Tuesday- 8:00am to 5:00 pm Will see patients from other [facility]. Charges based on income and family size and accepts Medicare, Medicaid, and Insurances Will pull molars [facility] [address] Hours of Operation 8:00 am - 4:30 pm weekdays The following dental offices accept Medicaid: [facility] Dr. Jansen Dr. Hernandez Dr. Flores Dr. Steve Davey [place], [place], and [place] oral surgery Dr. Monroy ([place]) Dr. Barrera ([place]) [facility] Drs. Sung ([place]) Dr. Mar ([place]) [facility] Dr. Scott ([place]) Drs. Hopson and ([place]) Medicaid Care Line Prescriptions: Penicillin V Potassium [Penicillin Vk 500 mg Tablet] 500 mg PO BID #20 tablet Forms: Elevated Blood Pressure Referrals: JOI PALACIOS MD [ACTIVE STAFF] - Follow up as needed
[2020-01-22] MEDS ORDERED: HYDROCODONE/ACETAMINOPHEN 5-325 MG TABLET PO ONE (16:49)
== END 2020-01-22 17:09 | disposition home or self-care (01) ==
LOC: ER 16:33
DX: K02.9 Dental caries, unspecified (principal); K08.89 Other specified disorders of teeth and supporting structures; Z88.6 Allergy status to analgesic agent; Z88.5 Allergy status to narcotic agent
CPT/HCPCS: 99283; J3490 ×2